=== PATIENT | male | born 1960 | race Caucasian/White ===

== ENCOUNTER 2017-12-09 20:39 | Emergency (ER) | payer OTHER ==
[2017-12-09] MEDS: ASPIRIN 81 MG CHEW TAB PO ONE (20:45)
--- NOTE | 2017-12-09 20:45 | ED Physician Documentation ---
General Adult - HISTORIAN Historian: patient - HPI Stated Complaint: chest pain Chief Complaint: General Adult Onset: hours Timing: still present Severity: moderate Further Comments: yes (Pt is a 57 yo male with chest pain. Pt has had [place] x 3 with stents placed, last one 3 yrs ago. Pt has had pain in R side of chest, radiating to neck. No increased sob, no n/v. Pt smells of alcohol.) - ROS CONST: no problems EYES/ENT: none CVS/RESP: chest pain GI/: none MS/SKIN/LYMPH: none NEURO/PSYCH: other (ETOH intox) - PAST HX Past History: hypertension, other (AZ x 3 with stents placed, last one 3 yrs ago ; HTN; HLD; CAD) Allergies/Adverse Reactions: Allergies Allergy/AdvReac Type Severity Reaction Status Date / Time No Known Allergies Allergy Verified 12/09/17 21:39 Home Medications: Ambulatory Orders Medication Instructions Recorded Metoprolol Succinate [Toprol XL] 25 mg D 12/22/15 - SOCIAL HX Smoking History: cigarettes, chew Alcohol Use: heavy Drug Use: marijuana - FAMILY HX Family History: No (unknown) - VITAL SIGNS Vital Signs: Vital Signs Temp Pulse Resp BP Pulse Ox 131/92 01/06/16 18:24 - REVIEWED ASSESSMENTS Nursing Assessment Reviewed: Yes Vitals Reviewed: Yes Progress - Progress Progress: ASA 325 mg po Banana bag 1 L IVF CXR: 1. Hypoventilation with left ventricular prominence and prominence of vascular markings. 2. No coalescent infiltrate. Transfer to [facility]. Dr. Choe, cardiology. - EKG/XRAY/CT EKG: NSR (HR=87; LAD.) ED Results Lab/Radiology - Orders Orders: ED Orders Category Date Time Status Continuous EKG monitoring Q30M Care 12/09/17 20:41 Ordered Continuous Pulse Oximetry Q30M Care 12/09/17 20:[address] IV Lock 1T Care 12/09/17 20:41 Ordered ALCOHOL MEDICAL USE ONLY Stat Lab 12/09/17 Ordered BNP [NT-proBNP] Stat Lab 12/09/17 Ordered CBC/PLATELET/DIFF Routine Lab 12/09/17 20:41 Ordered CKMB Stat Lab 12/09/17 Ordered CMP Routine Lab 12/09/17 20:41 Ordered CREATINE KINASE Routine Lab 12/09/17 20:41 Ordered TROPONIN I (cTnI) Stat Lab 12/09/17 20:41 Ordered UDS [DRUG SCREEN URINE MEDICAL ONLY] Routine Lab 12/09/17 Ordered Aspirin Med 12/09/17 20:41 Once 324 mg PO NOW ONE Oxygen Daily Oxygen 12/09/17 20:45 Ordered EKG WITH COMPARISON Stat Ther 12/09/17 20:41 Ordered General Adult Physical Exam - PHYSICAL EXAM GENERAL APPEARANCE: moderate distress EENT: pharynx normal NECK: normal inspection, supple RESPIRATORY: no resp distress, chest non-tender, breath sounds normal CVS: reg rate & rhythm, heart sounds normal, equal pulses ABDOMEN: soft, no organomegaly, normal bowel sounds BACK: normal inspection, no CVA tenderness SKIN: warm/dry, normal color EXTREMITIES: non-tender, normal range of motion, no evidence of injury, no edema NEURO: oriented X3, motor nml, sensation nml, other (ETOH intox) Discharge Clincal Impression: Chest pain Qualifiers: Chest pain type: unspecified Qualified Code(s): R07.9 - Chest pain, unspecified Referrals: Primary Doctor,No [Primary Care Provider] - Condition: Stable Disposition: 02 XFER SHT-TRM HOSP Decision to Admit: NO Decision Time: 21:55
[2017-12-09 20:56] LABS: BASOPHILS % 0.6 (0.0-1.5); EOSINOPHILS % 2.7 % (0.0-6.8); MEAN CORPUSCULAR HEMOGLOBIN 30.9 pg (28.0-34.0); MEAN CORPUSCULAR VOLUME 89.9 fl (80.0-100.0); MONOCYTES % 3.9 % (0.0-11.0); NEUTROPHILS # 7.3 # k/uL (1.4-7.7)
[2017-12-09 21:13] LABS: eGFR (African) > 60; eGFR (Non-African) > 60
[2017-12-09] MEDS: THIAMINE HCL 100 MG, MVI, ADULT NO.1 WITH VIT K 10 ML, FOLIC ACID 5 MG in 0.9 % SODIUM ... IV SCH ×4 (21:56)
[2017-12-09] MEDS: MVI, ADULT NO.1 WITH VIT K 10 ML VIAL IV ONE (21:56)
[2017-12-09] MEDS: 0.9 % SODIUM CHLORIDE 1,000 ML IV ONE (21:57)
[2017-12-09] MEDS: THIAMINE HCL 100 MG/ML 2ML VIAL ONE (21:57)
[2017-12-09 22:03] VITALS: BP 115/77
--- NOTE | 2017-12-10 05:26 | Diagnostic Imaging Report ---
ROMAIN GUERRIER [facility] [address] [facility] [address] [place] [address]. [id number] Report Submission Date: Dec 09, 2017 9:56:59 PM CDT Patient Study Name: NASRIN WILLS Date: Dec 09, 2017 9:45:08 PM CDT Modality Type: DX Gender: M Description: CHEST : 64 Institution: [facility] Physician: ROMAIN GUERRIER Portable chest Clinical history: CHEST PAIN, PT SAYS PAIN STARTED ABOUT 2 HOURS AGO Findings: Examination of the chest in single portable AP view demonstrates the lungs to be hypoventilated. Cardiac silhouette is prominent. There is crowding of the vascular markings. Monitor leads superimpose the chest. Impression: 1. Hypoventilation with left ventricular prominence and prominence of vascular markings. 2. No coalescent infiltrate. Electronically signed on Dec 09, 2017 9:56:59 PM CDT by: Dez RIBEIRO
[2017-12-10 06:44] LABS: CANNABINOIDS NEGATIVE ng/mL (< 50); METHYLENEDIOXYMETHAMPHETAMINE NEGATIVE ng/mL (<500)
== END 2017-12-09 22:16 | disposition short-term general hospital (02) ==
LOC: ED 20:39
DX: R07.9 Chest pain, unspecified (principal); I10 Essential (primary) hypertension; E78.5 Hyperlipidemia, unspecified; I25.10 Atherosclerotic heart disease of native coronary artery without angina pectoris; F17.210 Nicotine dependence, cigarettes, uncomplicated
CPT/HCPCS: 71045; 80053; 80320; 80377; 82550; 82553; 83880; 84484; 85025; 85379; J3411; J3490; J7030; 99283; 99284; G0480; G0481; S1016

== ENCOUNTER 2017-12-24 11:29 | Outpatient (CLI) | payer OTHER | END 2017-12-24 11:30 | LOC: LAB 11:29 | PROVIDERS: ATTEND Family Medicine | DX: E03.9 Hypothyroidism, unspecified (principal) | CPT/HCPCS: 36415; 84439; 84443 ==

== ENCOUNTER 2018-01-23 09:06 | Outpatient (CLI) | payer OTHER ==
--- NOTE | 2018-01-23 19:53 | Diagnostic Imaging Report ---
[facility] [address] [facility] [id number] Report Submission Date: January 23, 2018 9:43:01 AM CDT Patient Study Name: NASRIN WILLS Date: January 23, 2018 9:12:29 AM CDT Modality Type: DX Gender: M Description: LOWER EXTREMITY : 64 Institution: [facility] Physician: ADRIANA MORROW - JOEY Examination: Plain film knees History: BILATERAL KNEES, OSTEOARTHRITIS/ RT KNEE PAIN X1 MONTH, HAS HAD LEFT KNEE PAIN IN THE PAST BUT CURRENTLY THE RT KNEE PAIN IS WORSE (Hx) Findings: 3 views of the right and left knee demonstrates mild osteopenia. Mild tibial spine, medial articular, and patellar spurring. No fracture. No dislocation. No joint effusion. No soft tissue irregularity. Impression: Osteopenia and degenerative changes. No acute appearing osseous abnormality. Electronically signed on January 23, 2018 9:43:01 AM CDT by: Adithya RIBEIRO
== END 2018-01-23 09:07 ==
LOC: RAD 09:06
PROVIDERS: ATTEND Family Medicine
DX: M17.11 Unilateral primary osteoarthritis, right knee (principal)

== ENCOUNTER 2018-03-03 11:14 | Outpatient (CLI) | payer OTHER | END 2018-03-03 11:16 | LOC: CARD 11:14 | PROVIDERS: ATTEND Internal Medicine Cardiovascular Disease | DX: I25.10 Atherosclerotic heart disease of native coronary artery without angina pectoris (principal); I10 Essential (primary) hypertension; E78.5 Hyperlipidemia, unspecified | CPT/HCPCS: 99213 ==

== ENCOUNTER 2018-05-11 09:11 | Outpatient (CLI) | payer OTHER | END 2018-05-11 09:12 | LOC: LAB 09:11 | PROVIDERS: ATTEND Family Medicine | DX: E03.9 Hypothyroidism, unspecified (principal); E78.5 Hyperlipidemia, unspecified | CPT/HCPCS: 36415; 80061; 84443 ==

== ENCOUNTER 2018-07-03 11:13 | Outpatient (CLI) | payer OTHER | END 2018-07-03 11:14 | LOC: LAB 11:13 | PROVIDERS: ATTEND Family Medicine | DX: I25.10 Atherosclerotic heart disease of native coronary artery without angina pectoris (principal); Z51.81 Encounter for therapeutic drug level monitoring; Z79.899 Other long term (current) drug therapy; E03.9 Hypothyroidism, unspecified | CPT/HCPCS: 36415; 80061; 84443 ==

== ENCOUNTER 2018-08-28 12:27 | Outpatient (CLI) | payer OTHER ==
[2018-08-28 13:51] LABS: eGFR (Non-African) > 60
== END 2018-08-28 12:35 ==
LOC: LAB 12:27
PROVIDERS: ATTEND Family Medicine
DX: I10 Essential (primary) hypertension (principal)
CPT/HCPCS: 36415; 80053

== ENCOUNTER 2018-11-19 16:38 | Emergency (ER) | payer OTHER ==
[2018-11-19] MEDS ORDERED: 0.9 % SODIUM CHLORIDE 1,000 ML IV ONE (16:57)
[2018-11-19] MEDS ORDERED: ONDANSETRON HCL/PF 4 MG/ 2ML VIAL IVP ONE (16:58)
[2018-11-19 17:06] VITALS: BP 121/81
[2018-11-19 18:08] LABS: BASOPHILS % 0.8 (0.0-1.5); EOSINOPHILS % 0.8 % (0.0-6.8); MEAN CORPUSCULAR HEMOGLOBIN 30.1 pg (28.0-34.0); MONOCYTES % 4.3 % (0.0-11.0); NEUTROPHILS # 3.9 # k/uL (1.4-7.7)
[2018-11-19 18:12] LABS: eGFR (Non-African) > 60
--- NOTE | 2018-11-19 18:20 | ED Physician Documentation ---
General Adult - HISTORIAN Historian: patient - HPI Stated Complaint: Nausea and emesis Chief Complaint: General Adult Further Comments: yes (58 year old male patient presents with complaint of fever, cough, body aches and nause for the past week. Has not seen his PCP. Has not been using any OTC medications. States all he can eat is crackers.) - ROS CONST: fever, chills EYES/ENT: none CVS/RESP: cough. denies: chest pain, shortness of breath GI/: nausea. denies: abdominal pain, vomiting, diarrhea MS/SKIN/LYMPH: none NEURO/PSYCH: other. denies: headache, fainting, dizziness, tingling, numbness, difficulty walking, difficulty with speech, anxiety, depression - PAST HX Past History: hypertension, other (HLD, Hypothyroidism, HLD) Allergies/Adverse Reactions: Allergies Allergy/AdvReac Type Severity Reaction Status Date / Time No Known Allergies Allergy Verified 11/19/18 17:07 Home Medications: Ambulatory Orders Medication Instructions Recorded Metoprolol Succinate [Toprol XL] 25 mg D 12/22/15 Aspirin 81 mg PO DAILY u2 12/24/17 Atorvastatin Calcium 40 mg PO DAILY u2 12/24/17 Nitroglycerin 0.4 mg SL DAILY PRN u2 12/24/17 Ondansetron HCl Rapdis [Zofran Odt] 4 mg PO Q6 PRN #30 tab 11/19/18 - SOCIAL HX Smoking History: cigarettes, chew - FAMILY HX Family History: No - VITAL SIGNS Vital Signs: Vital Signs Temp Pulse Resp BP Pulse Ox 97.6 F 94 H 15 121/81 96 11/19/18 16:40 11/19/18 16:40 11/19/18 16:40 11/19/18 16:40 11/19/18 16:40 - REVIEWED ASSESSMENTS Nursing Assessment Reviewed: Yes Vitals Reviewed: Yes Progress - Progress Progress: Patient states he feels better after fluids and zofran IV. Lab reviewed - LFTs previously elevated, patient on a statin. ED Results Lab/Radiology - Lab Results Lab Results: Lab Results 11/19/18 11/19/18 17:55 17:55 WBC 5.70 K/ul K/ul (4.00-12.00) RBC 5.34 M/ul H M/ul (3.90-5.20) Hgb 16.1 g/dL g/dL (12.0-18.0) Hct 48.2 % % (37.0-53.0) MCV 90.0 fl fl (80.0-100.0) MCH 30.1 pg pg (28.0-34.0) MCHC 33.4 g/dL g/dL (30.0-36.0) RDW 13.3 % % (11.3-14.3) Plt Count 99 K/mm3 L K/mm3 (130-400) Neut % (Auto) 68.3 % % (39.0-79.0) Lymph % (Auto) 25.8 % % (16.0-50.0) Howard % (Auto) 4.3 % % (0.0-11.0) Eos % (Auto) 0.8 % % (0.0-6.8) Baso % (Auto) 0.8 (0.0-1.5) Neut # (Auto) 3.9 # k/uL # k/uL (1.4-7.7) Lymph # (Auto) 1.5 # k/uL # k/uL (0.6-4.0) Howard # (Auto) 0.2 # k/uL # k/uL (0.0-0.9) Eos # (Auto) 0.1 # k/uL # k/uL (0.0-0.6) Baso # (Auto) 0.1 # k/uL # k/uL (0.0-0.5) Sodium 135 mmol/L L mmol/L (136-145) Potassium 3.9 mmol/L mmol/L (3.5-5.1) Chloride 93 mmol/L L mmol/L (98-107) Carbon Dioxide 29 mmol/L mmol/L (22-30) BUN 16 mg/dL mg/dL (9-20) Creatinine 1.26 mg/dL H mg/dL (0.66-1.25) Estimated Creat Clear 104 Est GFR ( Amer) > 60 (60 - ) Est GFR (Non-Af Amer) > 60 (60 - ) Glucose 116 mg/dL H mg/dL (74-106) Calcium 8.2 mg/dL L mg/dL (8.4-10.2) Total Bilirubin 0.8 mg/dL mg/dL (0.2-1.3) AST 93 U/L H U/L (15-46) ALT 88 U/L H U/L (13-69) Alkaline Phosphatase 62 U/L U/L (38-126) Total Protein 7.5 g/dL g/dL (6.3-8.2) Albumin 4.2 g/dL g/dL (3.5-5.0) - Orders Orders: ED Orders Category Date Time Status Place IV Lock 1T Care 11/19/18 16:57 Active CBC/PLATELET/DIFF Stat Lab 11/19/18 17:55 Completed CMP Stat Lab 11/19/18 17:55 Completed INFLUENZA A&B Stat Lab 11/19/18 16:57 Ordered 0.9 % Sodium Chloride [Normal Saline] 1,000 ml Med 11/19/18 16:57 Discontinued IV NOW Ondansetron HCl/Pf [Zofran] Med 11/19/18 16:58 Discontinued 4 mg IVP NOW ONE General Adult Physical Exam - PHYSICAL EXAM GENERAL APPEARANCE: [id number] N EENT: eye inspection normal, ENT inspection normal, pharynx normal, no signs of dehydration, TARA, no nystagmus, TM's nml, other (teeth covered with chewing tobacco; strong odor of cigarettes) RESPIRATORY: no resp distress, chest non-tender, breath sounds normal CVS: reg rate & rhythm, heart sounds normal, equal pulses, no murmur, no gallop, PMI nml, no JVD, no friction rub, 24 ABDOMEN: soft SKIN: normal color, warm/dry, NR, INT, PAL, DR EXTREMITIES: non-tender, normal range of motion, no evidence of injury, no edema, J, 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 Diet: Clear liquids Sprite/7-up Juices apple, white grape Gatorade/Powerade Jello Popsicles When tolerating clear liquids, advance to bland/brat diet - such as crackers, rice, Bananas, apples/applesauce or toast Fever: Use Tylenol or Ibuprofen as needed per package directions Tylenol 500mg po q4h prn pain Ibuprofen 800mg po TID prn pain - do not take for more than 4 days. Return to the emergency department or call your doctor, if you are having severe abdominal pain, fever >101.0, or if there is blood in the vomit or diarrhea, or you cannot keep down liquids or solid food. Condition: Stable Disposition: 01 HOME, SELF-CARE Decision to Admit: NO Decision Time: 18:23
[2018-11-19 23:19] LABS: PLT EST. EST. AGREES W/PLT CT
== END 2018-11-19 19:28 | disposition home or self-care (01) ==
LOC: ED 16:38
DX: B34.9 Viral infection, unspecified (principal); R11.0 Nausea
CPT/HCPCS: 36415; 80053; 85025; 87400; 96374; 99283; 99284; J2405; J7030; S1016

== ENCOUNTER 2019-05-12 09:48 | Outpatient (CLI) | payer OTHER | END 2019-05-12 09:50 | LOC: LAB 09:48 | PROVIDERS: ATTEND Family Medicine | DX: E03.9 Hypothyroidism, unspecified (principal) | CPT/HCPCS: 36415; 84443 ==

== ENCOUNTER 2019-06-02 10:45 | Outpatient (CLI) | payer OTHER | END 2019-06-02 10:47 | LOC: LAB 10:45 | PROVIDERS: ATTEND Family Medicine | DX: E03.9 Hypothyroidism, unspecified (principal) | CPT/HCPCS: 36415; 84443 ==